=== PATIENT | female | born 1995 | race Caucasian/White ===

== ENCOUNTER → 2019-05-05 10:03 | Outpatient (BNVA) | payer SELFPAY | PROVIDERS: PCP Family Medicine | DX: J03.80 Acute tonsillitis due to other specified organisms (principal); B96.89 Other specified bacterial agents as the cause of diseases classified elsewhere | CPT/HCPCS: 87081; 87880 ==

== ENCOUNTER → 2019-09-08 15:16 | Outpatient (BNVA) | payer SELFPAY | PROVIDERS: PCP Family Medicine; Visit Provider Nurse Practitioner | DX: J06.9 Acute upper respiratory infection, unspecified (principal); J02.9 Acute pharyngitis, unspecified | CPT/HCPCS: 87071; 87880 ==

== ENCOUNTER → 2020-02-05 10:59 | Outpatient (BNVA) | payer SELFPAY | PROVIDERS: PCP Family Medicine; Visit Provider Nurse Practitioner Family | DX: M25.571 Pain in right ankle and joints of right foot (principal); S82.61XA Displaced fracture of lateral malleolus of right fibula, initial encounter for closed fracture; W19.XXXA Unspecified fall, initial encounter | CPT/HCPCS: 73610; 73630 ==

== ENCOUNTER → 2020-02-21 08:48 | Outpatient (BNVA) | payer SELFPAY | PROVIDERS: PCP Family Medicine; Visit Provider Orthopaedic Surgery | DX: S82.64XA Nondisplaced fracture of lateral malleolus of right fibula, initial encounter for closed fracture (principal); X58.XXXA Exposure to other specified factors, initial encounter | CPT/HCPCS: 73610 ==

== ENCOUNTER → 2020-03-20 08:18 | Outpatient (BNVA) | payer SELFPAY | PROVIDERS: PCP Family Medicine; Visit Provider Orthopaedic Surgery | DX: S82.831A Other fracture of upper and lower end of right fibula, initial encounter for closed fracture (principal); X58.XXXA Exposure to other specified factors, initial encounter | CPT/HCPCS: 73610 ==